=== PATIENT | female | born 2000 | race American Indian/Alaskan Native ===

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

== ENCOUNTER 2020-05-23 02:50 | Emergency (ER) | payer MEDICARE ==
[2020-05-23 03:04] VITALS: BP 114/91
[2020-05-23] MEDS ORDERED: FAMOTIDINE 20 MG TAB PO ONE (04:31)
[2020-05-23] MEDS ORDERED: ONDANSETRON 4 MG ODT TAB PO ONE (04:31)
--- NOTE | 2020-05-23 04:40 | Emergency Department Report ---
ED N/V/D HPI - General Chief complaint: Nausea/Vomiting/Diarrhea Stated complaint: HEADACHE Source: EMS Mode of arrival: Ambulatory Limitations: No Limitations - History of Present Illness Initial comments: Patient is a nulliparous 20-year-old -[place]ian female with a history of bipolar disorder, schizophrenia, hypertension and [id number]-ebzewccvl diabetes who presents to the ED with complaint of acute onset nausea and vomiting after drinking alcohol about 4 hours ago. Patient states that she has not been able to keep anything down since the onset of the symptoms. Patient states that she has had up to 4 episodes of nausea and vomiting. Patient denies diarrhea, abdominal pain, chest pain, shortness of breath, fever, chills, fever, chills, dysuria, urinary frequency and urgency, back pain, patient states that she has not been able to keep anything down chest pain or shortness of breath. MD complaint: nausea, vomiting -: Sudden, hour(s) (4) Description of Vomiting: food contents Associated Abdominal Pain: No Location: diffuse Radiation: none Pain Scale: 2 Quality: aching, dull Consistency: intermittent Improves with: none Worsens with: none Context: possible food poisoning, alcohol abuse Associated Symptoms: denies other symptoms, nausea/vomiting. denies: myalgias, chest pain, cough, diaphoresis, headaches, loss of appetite, malaise, rash, shortness of breath, syncope, weakness, other - Related Data Home Medications Medication Instructions Recorded Confirmed Last Taken Metoprolol [Lopressor] 100 mg PO BID 06/30/16 09/30/19 06/29/16 hydrOXYzine PAMOATE [Vistaril] 25 mg PO Q6HR PRN 09/30/19 09/30/19 Unknown hydrOXYzine PAMOATE [Vistaril] 75 mg PO HS 09/30/19 09/30/19 Unknown Previous Rx's Medication Instructions Recorded Last Taken Type Quetiapine Fumarate [SEROquel] 450 mg PO HS #30 10/03/19 Unknown Rx Dicyclomine [Bentyl] 20 mg PO Q6H PRN #24 tablet 05/23/20 Unknown Rx Famotidine [Pepcid] 20 mg PO BID #40 tablet 05/23/20 Unknown Rx Ondansetron [Zofran Odt] 4 mg PO Q6HR PRN #20 tab.rapdis 05/23/20 Unknown Rx Allergies Allergy/AdvReac Type Severity Reaction Status Date / Time ziprasidone HCl [From [facility]] Allergy Severe Swelling Verified 12/08/18 10:03 ziprasidone mesylate Allergy Severe Swelling Verified 12/08/18 10:03 [From [facility]] latex Allergy Itching Verified 12/08/18 10:03 ED Review of Systems ROS: Stated complaint: HEADACHE Other details as noted in HPI Constitutional: denies: chills, fever Eyes: denies: eye pain, eye discharge, vision change ENT: denies: ear pain, throat pain Respiratory: denies: cough, shortness of breath, wheezing Cardiovascular: denies: chest pain, palpitations Endocrine: no symptoms reported Gastrointestinal: nausea, vomiting. denies: abdominal pain, diarrhea Genitourinary: denies: urgency, dysuria, discharge Musculoskeletal: denies: back pain, joint swelling, arthralgia Skin: denies: rash, lesions Neurological: denies: headache, weakness, paresthesias Psychiatric: denies: anxiety, depression Hematological/Lymphatic: denies: easy bleeding, easy bruising ED Past Medical Hx - Past Medical History Hx Hypertension: Yes Hx Diabetes: Yes Hx Psychiatric Treatment: Yes (schizophrenia, PTSD) Additional medical history: OCD, Obesity - Social History Smoking Status: Current Every Day Smoker Substance Use Type: Alcohol, Marijuana - Medications Home Medications: Home Medications Medication Instructions Recorded Confirmed Last Taken Type Metoprolol [Lopressor] 100 mg PO BID 06/30/16 09/30/19 06/29/16 History hydrOXYzine PAMOATE [Vistaril] 25 mg PO Q6HR PRN 09/30/19 09/30/19 Unknown History hydrOXYzine PAMOATE [Vistaril] 75 mg PO HS 09/30/19 09/30/19 Unknown History Quetiapine Fumarate [SEROquel] 450 mg PO HS #30 10/03/19 Unknown Rx Dicyclomine [Bentyl] 20 mg PO Q6H PRN #24 tablet 05/23/20 Unknown Rx Famotidine [Pepcid] 20 mg PO BID #40 tablet 05/23/20 Unknown Rx Ondansetron [Zofran Odt] 4 mg PO Q6HR PRN #20 tab.rapdis 05/23/20 Unknown Rx ED Physical Exam - General Limitations: No Limitations General appearance: alert, in no apparent distress - Head Head exam: Present: atraumatic, normocephalic, normal inspection - Eye Eye exam: Present: normal appearance, PERRL, EOMI Pupils: Present: normal accommodation - ENT ENT exam: Present: normal exam, normal orophraynx, mucous membranes moist, TM's normal bilaterally, normal external ear exam - Neck Neck exam: Present: normal inspection, full ROM - Respiratory Respiratory exam: Present: normal lung sounds bilaterally. Absent: respiratory distress, wheezes, rales, chest wall tenderness, accessory muscle use, decreased breath sounds, prolonged expiratory - Cardiovascular Cardiovascular Exam: Present: normal rhythm, tachycardia, normal heart sounds. Absent: systolic murmur, diastolic murmur, rubs, gallop - GI/Abdominal GI/Abdominal exam: Present: soft, normal bowel sounds. Absent: tenderness, guarding, rebound, hyperactive bowel sounds, hypoactive bowel sounds, organomegaly - Extremities Exam Extremities exam: Present: normal inspection, full ROM, normal capillary refill - Back Exam Back exam: Present: normal inspection, full ROM. Absent: tenderness, CVA tenderness (R), CVA tenderness (L), muscle spasm, paraspinal tenderness - Neurological Exam Neurological exam: Present: alert, oriented X3, CN II-XII intact, normal gait, reflexes normal - Psychiatric Psychiatric exam: Present: normal affect, normal mood - Skin Skin exam: Present: warm, dry, intact, normal color. Absent: rash ED Course Vital Signs 05/23/20 02:58 Temperature 98.5 F Pulse Rate 103 H Respiratory 16 Rate Blood Pressure 114/91 O2 Sat by Pulse 97 Oximetry ED Medical Decision Making - Medical Decision Making This is a nulliparous 20-year-old -[place]ian female with a history of bipolar disorder, schizophrenia, hypertension and [id number] diabetes who presents to the ED with complaint of acute onset nausea and vomiting after drinking alcohol about 4 hours ago. Patient states that she has not been able to keep anything down since the onset of the symptoms. Patient states that she has had up to 4 episodes of nausea and vomiting. In the ED, patient is alert and oriented x3 and is not in distress. Patient was treated for nausea and vomiting in the ED and also given antacids. Urine hCG test was negative. Urinalysis was also unremarkable with no acute abnormalities. Patient passed oral fluid challenge in the ED. Patient was therefore discharged home on medications and advised to follow-up with her primary care physician in 5 to 7 days for reevaluation or return to the ED immediately if symptoms get worse. - Differential Diagnosis ; UTI; Viral gastroenteritis; Gastritis; GERD; dehydration Critical care attestation.: If time is entered above; I have spent that time in minutes in the direct care of this critically ill patient, excluding procedure time. ED Disposition Clinical Impression: Alcohol abuse, Nausea and vomiting in adult GERD (gastroesophageal reflux disease) Qualifiers: Esophagitis presence: without esophagitis Qualified Code(s): K21.9 - Gastro- esophageal reflux disease without esophagitis Disposition: TO HOME OR SELFCARE Is pt being admited?: No Does the pt Need Aspirin: No Condition: Stable Instructions: Gastroenteritis (ED), Acute Nausea and Vomiting (ED) Additional Instructions: Maintain a clear liquid diet for 12 to 24 hours. Take medication as needed for nausea and vomiting and follow-up with your primary care physician in 5 to 7 days for reevaluation. Return to the ED immediately if symptoms get worse. Prescriptions: Dicyclomine [Bentyl] 20 mg PO Q6H PRN #24 tablet PRN Reason: Abdominal pain Famotidine [Pepcid] 20 mg PO BID #40 tablet Ondansetron [Zofran Odt] 4 mg PO Q6HR PRN #20 tab.rapdis PRN Reason: Nausea Referrals: [facility] [Provider Group] - 3-5 Days Time of Disposition: 04:39 Print Language: ROMANIAN
[2020-05-23] MEDS ORDERED: ACETAMINOPHEN 325 MG TAB ONE (05:00)
[2020-05-23] MEDS ORDERED: ACETAMINOPHEN 325 MG TAB PO ONE (05:01)
[2020-05-23 05:05] LABS: Bilirubin,Urine NEG (Negative); Blood,Urine NEG (Negative); Color,Urine Yellow (Yellow); Hyaline Casts,Urine 2 /LPF; Mucus,Urine 3+ /HPF; Urobilinogen,Urine < 2.0 mg/dL (<2.0)
== END 2020-05-23 05:40 | disposition home or self-care (01) ==
LOC: ED 02:50
DX: K21.9 Gastro-esophageal reflux disease without esophagitis (principal); R11.2 Nausea with vomiting, unspecified; F10.10 Alcohol abuse, uncomplicated; I10 Essential (primary) hypertension; E11.9 Type 2 diabetes mellitus without complications; F20.9 Schizophrenia, unspecified; F17.200 Nicotine dependence, unspecified, uncomplicated; F12.10 Cannabis abuse, uncomplicated; Z79.899 Other long term (current) drug therapy; Z88.8 Allergy status to other drugs, medicaments and biological substances; Z91.040 Latex allergy status
CPT/HCPCS: 36415; 81001; 84703; 87086; Q0162

== ENCOUNTER 2020-12-14 19:37 | Emergency (ER) | payer MEDICARE, OTHER ==
[2020-12-14] MEDS ORDERED: TETRACAINE 0.5% OPHTH SOLN 4ML OU STA (21:14)
[2020-12-14] MEDS ORDERED: SODIUM CHLORIDE 0.9% 1000 ML 1,000 ML IV ONE (21:14)
--- NOTE | 2020-12-14 22:10 | Emergency Department Report ---
ED Eye Problem HPI - General Chief complaint: Eye Problems Stated complaint: BLEACH IN EYES Time Seen by Provider: 12/14/20 21:13 Source: patient Mode of arrival: Ambulatory Limitations: No Limitations - History of Present Illness Initial comments: 20-year-old -[place] female [facility] emergency department complaining of burning and pain some blurred vision to the right eye after being accidentally splashed bleach. States that the majority of the specimen into the right she had a small amount that she thinks might have went into her left but her primary area of concern is the right. She reports no headache, no dizziness MD chief complaint: eye pain, eye redness, eye injury - Related Data Home Medications Medication Instructions Recorded Confirmed Last Taken Metoprolol [Lopressor] 100 mg PO BID 06/30/16 09/30/19 06/29/16 hydrOXYzine PAMOATE [Vistaril] 25 mg PO Q6HR PRN 09/30/19 09/30/19 Unknown hydrOXYzine PAMOATE [Vistaril] 75 mg PO HS 09/30/19 09/30/19 Unknown Previous Rx's Medication Instructions Recorded Last Taken Type Quetiapine Fumarate [SEROquel] 450 mg PO HS #30 10/03/19 Unknown Rx Dicyclomine [Bentyl] 20 mg PO Q6H PRN #24 tablet 05/23/20 Unknown Rx Famotidine [Pepcid] 20 mg PO BID #40 tablet 05/23/20 Unknown Rx Ondansetron [Zofran Odt] 4 mg PO Q6HR PRN #20 tab.rapdis 05/23/20 Unknown Rx Gentamicin 0.3% Ophth Soln 1 drops OP Q6H #1 bottle 12/14/20 Unknown Rx Ketorolac Tromethamine [Acular 1 drop OD Q6HR PRN #1 bottle 12/14/20 Unknown Rx 0.5% Opth Soln] Naphazoline HCl/Pheniramine 1 drop OP QID #1 bottle 12/14/20 Unknown Rx [Naphcon-A Eye Drops] Allergies Allergy/AdvReac Type Severity Reaction Status Date / Time ziprasidone HCl [From [facility]] Allergy Severe Swelling Verified 12/08/18 10:03 ziprasidone mesylate Allergy Severe Swelling Verified 12/08/18 10:03 [From [facility]] latex Allergy Itching Verified 12/08/18 10:03 ED Review of Systems ROS: Stated complaint: BLEACH IN EYES Other details as noted in HPI Comment: All other systems reviewed and negative ED Past Medical Hx - Past Medical History Previous Medical History?: Yes Hx Hypertension: Yes Hx Diabetes: Yes Hx Psychiatric Treatment: Yes (schizophrenia, PTSD) Additional medical history: OCD, Obesity - Surgical History Past Surgical History?: No - Social History Smoking Status: Never Smoker Substance Use Type: None - Medications Home Medications: Home Medications Medication Instructions Recorded Confirmed Last Taken Type Metoprolol [Lopressor] 100 mg PO BID 06/30/16 09/30/19 06/29/16 History hydrOXYzine PAMOATE [Vistaril] 25 mg PO Q6HR PRN 09/30/19 09/30/19 Unknown History hydrOXYzine PAMOATE [Vistaril] 75 mg PO HS 09/30/19 09/30/19 Unknown History Quetiapine Fumarate [SEROquel] 450 mg PO HS #30 10/03/19 Unknown Rx Dicyclomine [Bentyl] 20 mg PO Q6H PRN #24 tablet 05/23/20 Unknown Rx Famotidine [Pepcid] 20 mg PO BID #40 tablet 05/23/20 Unknown Rx Ondansetron [Zofran Odt] 4 mg PO Q6HR PRN #20 tab.rapdis 05/23/20 Unknown Rx Gentamicin 0.3% Ophth Soln 1 drops OP Q6H #1 bottle 12/14/20 Unknown Rx Ketorolac Tromethamine [Acular 1 drop OD Q6HR PRN #1 bottle 12/14/20 Unknown Rx 0.5% Opth Soln] Naphazoline HCl/Pheniramine 1 drop OP QID #1 bottle 12/14/20 Unknown Rx [Naphcon-A Eye Drops] ED Physical Exam - General Limitations: No Limitations General appearance: alert, in no apparent distress - Head Head exam: Present: atraumatic, normocephalic - Eye Eye exam: Present: normal appearance, EOMI, conjunctival injection. Absent: nystagmus, periorbital swelling, periorbital tenderness - ENT ENT exam: Present: mucous membranes moist, other (Injected right conjunctiva. No fluorescein uptake noted. No nystagmus EMOI is intact) - Neck Neck exam: Present: normal inspection, full ROM - Respiratory Respiratory exam: Present: normal lung sounds bilaterally. Absent: respiratory distress - Cardiovascular Cardiovascular Exam: Present: regular rate, normal rhythm. Absent: systolic murmur, diastolic murmur, rubs, gallop - GI/Abdominal GI/Abdominal exam: Present: soft, normal bowel sounds - Extremities Exam Extremities exam: Present: normal inspection - Back Exam Back exam: Present: normal inspection - Neurological Exam Neurological exam: Present: alert, oriented X3 - Psychiatric Psychiatric exam: Present: normal affect, normal mood - Skin Skin exam: Present: warm, dry, intact, normal color. Absent: rash ED Course Vital Signs 12/14/20 19:42 Temperature 98.5 F Pulse Rate 93 H Respiratory 16 Rate Blood Pressure 124/87 O2 Sat by Pulse 100 Oximetry ED Medical Decision Making - Medical Decision Making 20-year-old F [place] female to [facility] complaining of right pain secondary to bleach. Injection was noted on examination no evidence of any cor belgica abrasion or corneal strong. Luis Antonio's lens was placed after tetracaine to anesthetize the eye and a saline drip was initiated for a total of 2 L and improvement in her system her's burning symptoms. Will discharge her with Naphcon-A and Acular and some antimicrobial 2 drops to take in the Critical care attestation.: If time is entered above; I have spent that time in minutes in the direct care of this critically ill patient, excluding procedure time. ED Disposition Clinical Impression: Corneal irritation of right eye Disposition: [id number]-01 TO HOME OR SELFCARE Is pt being admited?: No Does the pt Need Aspirin: No Condition: Stable Instructions: How to Use Eye Drops and Eye Ointments Prescriptions: Ketorolac Tromethamine [Acular 0.5% Opth Soln] 1 drop OD Q6HR PRN #1 bottle PRN Reason: eye pain Gentamicin 0.3% Ophth Soln 1 drops OP Q6H #1 bottle Naphazoline HCl/Pheniramine [Naphcon-A Eye Drops] 1 drop OP QID #1 bottle Referrals: PRIMARY CAREMD [Primary Care Provider] - 3-5 Days AARON HAYES MD [Staff Physician] - 3-5 Days
[2020-12-14] MEDS ORDERED: SODIUM CHLORIDE 0.45% 1000 ML 1,000 ML IV SCH (23:45)
[2020-12-15 03:03] VITALS: BP 112/62
== END 2020-12-15 03:04 | disposition home or self-care (01) ==
LOC: ED 19:37
DX: S05.01XA Injury of conjunctiva and corneal abrasion without foreign body, right eye, initial encounter (principal); I10 Essential (primary) hypertension; E11.9 Type 2 diabetes mellitus without complications; Z79.899 Other long term (current) drug therapy; Z91.040 Latex allergy status; Z88.8 Allergy status to other drugs, medicaments and biological substances; X58.XXXA Exposure to other specified factors, initial encounter; Y93.89 Activity, other specified; Y92.89 Other specified places as the place of occurrence of the external cause; Y99.8 Other external cause status
CPT/HCPCS: 96360; 96361; 99283; J7030

== ENCOUNTER 2021-08-25 14:43 | Emergency (ER) | payer MEDICARE, MEDICAID | END 2021-08-25 18:33 | disposition left against medical advice (07) | LOC: ED 14:43 | DX: R11.0 Nausea (principal); I10 Essential (primary) hypertension; Z53.21 Procedure and treatment not carried out due to patient leaving prior to being seen by health care provider ==

== ENCOUNTER 2021-10-11 22:05 | Emergency (ER) | payer MEDICARE ==
[2021-10-11 22:12] VITALS: BP 146/65
== END 2021-10-12 02:05 | disposition left against medical advice (07) ==
LOC: ED 22:05
DX: S05.32XA Ocular laceration without prolapse or loss of intraocular tissue, left eye, initial encounter (principal); Z53.21 Procedure and treatment not carried out due to patient leaving prior to being seen by health care provider; X58.XXXA Exposure to other specified factors, initial encounter; Y93.89 Activity, other specified; Y92.89 Other specified places as the place of occurrence of the external cause; Y99.8 Other external cause status

== ENCOUNTER 2021-12-05 01:06 | Emergency (ER) | payer MEDICARE ==
--- NOTE | 2021-12-05 02:00 | Emergency Department Report ---
HPI - HPI HPI: Room 7 The patient is a 21-year-old female presenting with a chief complaint of suicidal ideation. The patient came to the emergency department and told nursing in triage that she was suicidal. The patient states she took "a lot" of Seroquel but will not tell how much and what time. The patient told nursing staff in triage (Carrie) as she is planning to shoot herself. During my interview the patient appears disheveled and occasionally makes eye contact but does not answer questions. <MAGGI TIDWELL - Last Filed: 12/05/21 04:59> <MORGAN WOOD - Last Filed: 12/05/21 12:08> - General Chief Complaint: Psych Time Seen by Provider: 12/05/21 01:46 ED Past Medical Hx - Past Medical History Previous Medical History?: Yes Hx Hypertension: Yes Hx Diabetes: Yes Hx Psychiatric Treatment: Yes (schizophrenia, PTSD) Additional medical history: OCD, Obesity - Family History Family history: no significant - Social History Smoking Status: Unknown if ever smoked Substance Use Type: None <MAGGI TIDWELL - Last Filed: 12/05/21 04:59> <MORGAN WOOD - Last Filed: 12/05/21 12:08> - Medications Home Medications: Home Medications Medication Instructions Recorded Confirmed Last Taken Type Metoprolol [Lopressor] 100 mg PO BID 06/30/16 09/30/19 06/29/16 History hydrOXYzine PAMOATE [Vistaril] 25 mg PO Q6HR PRN 09/30/19 09/30/19 Unknown History hydrOXYzine PAMOATE [Vistaril] 75 mg PO HS 09/30/19 09/30/19 Unknown History Quetiapine Fumarate [SEROquel] 450 mg PO HS #30 10/03/19 Unknown Rx Dicyclomine [Bentyl] 20 mg PO Q6H PRN #24 tablet 05/23/20 Unknown Rx Famotidine [Pepcid] 20 mg PO BID #40 tablet 05/23/20 Unknown Rx Ondansetron [Zofran Odt] 4 mg PO Q6HR PRN #20 tab.rapdis 05/23/20 Unknown Rx Gentamicin 0.3% Ophth Soln 1 drops OP Q6H #1 bottle 12/14/20 Unknown Rx Ketorolac Tromethamine [Acular 1 drop OD Q6HR PRN #1 bottle 12/14/20 Unknown Rx 0.5% Opth Soln] Naphazoline HCl/Pheniramine 1 drop OP QID #1 bottle 12/14/20 Unknown Rx [Naphcon-A Eye Drops] ED Review of Systems ROS: Stated complaint: MENTAL HEALTH EVAL/TOOK PILLS Other details as noted in HPI Comment: Unobtainable due to pts medical conditions <MAGGI TIDWELL - Last Filed: 12/05/21 04:59> ROS: Stated complaint: MENTAL HEALTH EVAL/TOOK PILLS Other details as noted in HPI <NINAMORGAN - Last Filed: 12/05/21 12:08> Physical Exam - Physical Exam Vital Signs: Vital Signs 12/05/21 01:19 Temperature 98.6 F Pulse Rate 86 Respiratory 18 Rate Blood Pressure 115/72 [Left] O2 Sat by Pulse 97 Oximetry Physical Exam: GENERAL: The patient is well-developed well-nourished disheveled appearing female sleeping on stretcher. When she is awakened she begins rocking and making nervous movements throughout the bed. Patient does not answer questions. [] HEENT: Normocephalic. Atraumatic. Extraocular motions are intact. Patient has moist mucous membranes. NECK: Supple. Trachea mid CHEST/LUNGS: Clear to auscultation. There is no respiratory distress noted. HEART/CARDIOVASCULAR: Regular. There is no tachycardia. There is no gallop rub or murmur. ABDOMEN: Abdomen is soft, nontender. Patient has normal bowel sounds. There is no abdominal distention. SKIN: There is no rash. There is no edema. There is no diaphoresis. NEURO: The patient is asleep but easily awakens to verbal stimuli. The patient is not cooperative with history or neurologic exam. The patient has no focal neurologic deficits. MUSCULOSKELETAL: There is no evidence of acute injury. <MAGGI TIDWELL - Last Filed: 12/05/21 04:59> - Physical Exam Vital Signs: Vital Signs 12/05/21 12/05/21 01:19 07:17 Temperature 98.6 F Pulse Rate 86 73 Respiratory 18 16 Rate Blood Pressure 115/72 114/76 [Left] O2 Sat by Pulse 97 100 Oximetry <MORGAN WOOD - Last Filed: 12/05/21 12:08> ED Course Vital Signs 12/05/21 01:19 Temperature 98.6 F Pulse Rate 86 Respiratory 18 Rate Blood Pressure 115/72 [Left] O2 Sat by Pulse 97 Oximetry - Consultations Consultation #1: 12/05/21 04:28 Case discussed with poison control-Seroquel can lead to QTC prolongation so this should be evaluated with EKG. If the QTC is greater than 500 should optimize potassium to 4, magnesium to 2 and calcium to 9. Okay to give benzos for agitation as Seroquel may cause anticholinergic symptoms. Patient should be observed for 6 to 8 hours in the ED and returned to mental baseline before she can be cleared <MAGGI TIDWELL - Last Filed: 12/05/21 04:59> Vital Signs 12/05/21 12/05/21 01:19 07:17 Temperature 98.6 F Pulse Rate 86 73 Respiratory 18 16 Rate Blood Pressure 115/72 114/76 [Left] O2 Sat by Pulse 97 100 Oximetry - Reevaluation(s) Reevaluation #1: 12/05/21 08:52 The patient is seen and evaluated. She is in no acute distress. Laboratory studies are reviewed and appreciated. She appears to be . I performed bedside [id number] transabdominal ultrasound, confirmed presence of intraut erine , with spontaneous movement and heart rate. Abdomen soft and benign, without rebound, guarding or peritoneal signs, and the patient denies physical pain. Leukocytosis is likely a stress reaction, or secondary to , or both. Have ordered magnesium level, calcium within acceptable limits, potassium of 3.1 reviewed and appreciated, have ordered oral potassium supplementation. Have also ordered Daily vitamins. UA, UDS, COVID swab is pending. Patient reports this is her first lifetime , and she further reports she cannot recall her last menstrual period Reevaluation #2: 12/05/21 12:08 Magnesium level was essentially unremarkable. <MORGAN WOOD - Last Filed: 12/05/21 12:08> ED Medical Decision Making - Lab Data Result diagrams: 12/05/21 01:55 12/05/21 01:55 - EKG Data -: EKG Interpreted by Vt EKG shows normal: sinus rhythm, axis, intervals Rate: normal - EKG Data When compared to previous EKG there are: previous EKG unavailable Interpretation: other (QTC 417) - Differential Diagnosis Suicidal ideation, Seroquel overdose <MAGGI TIDWELL - Last Filed: 12/05/21 04:59> - Lab Data Result diagrams: 12/05/21 01:55 12/05/21 01:55 Vital Signs 12/05/21 12/05/21 01:19 07:17 Temperature 98.6 F Pulse Rate 86 73 Respiratory 18 16 Rate Blood Pressure 115/72 114/76 [Left] O2 Sat by Pulse 97 100 Oximetry Lab Results 12/05/21 12/05/21 12/05/21 Range/Units 01:55 01:55 01:55 WBC 14.6 H (4.5-11.0) K/mm3 RBC 4.35 (3.65-5.03) M/mm3 Hgb 12.4 (10.1-14.3) gm/dl Hct 36.0 (30.3-42.9) % MCV 83 (79-97) fl MCH 29 (28-32) pg MCHC 35 H (30-34) % RDW 14.1 (13.2-15.2) % Plt Count 367 (140-440) K/mm3 Lymph % (Auto) 16.5 (13.4-35.0) % [place] % (Auto) 7.7 H (0.0-7.3) % Eos % (Auto) 1.2 (0.0-4.3) % Baso % (Auto) 0.4 (0.0-1.8) % Lymph # (Auto) 2.4 (1.2-5.4) K/mm3 [place] # (Auto) 1.1 H (0.0-0.8) K/mm3 Eos # (Auto) 0.2 (0.0-0.4) K/mm3 Baso # (Auto) 0.1 (0.0-0.1) K/mm3 Seg Neutrophils % 74.2 H (40.0-70.0) % Seg Neutrophils # 10.8 H (1.8-7.7) K/mm3 Sodium 138 (137-145) mmol/L Potassium 3.1 L (3.6-5.0) mmol/L Chloride 101.5 (98-107) mmol/L Carbon Dioxide 24 (22-30) mmol/L Anion Gap 16 mmol/L BUN 8 (7-17) mg/dL Creatinine 0.6 (0.6-1.2) mg/dL Estimated GFR > 60 ml/min BUN/Creatinine Ratio 13 % Glucose 88 (65-100) mg/dL Calcium 9.6 (8.4-10.2) mg/dL Total Bilirubin 0.40 (0.1-1.2) mg/dL AST 28 (5-40) units/L ALT 42 (7-56) units/L Alkaline Phosphatase 72 (35-129) units/L Total Protein 6.8 (6.3-8.2) g/dL Albumin 3.8 L (3.9-5) g/dL Albumin/Globulin Ratio 1.3 % HCG, Qual (Negative) HCG, Quant (0-4) mIU/mL Salicylates < 0.3 L (2.8-20.0) mg/dL Acetaminophen (10.0-30.0) ug/mL Plasma/Serum Alcohol (0-0.07) % 12/05/21 12/05/21 12/05/21 Range/Units 01:55 01:55 01:55 WBC (4.5-11.0) K/mm3 RBC (3.65-5.03) M/mm3 Hgb (10.1-14.3) gm/dl Hct (30.3-42.9) % MCV (79-97) fl MCH (28-32) pg MCHC (30-34) % RDW (13.2-15.2) % Plt Count (140-440) K/mm3 Lymph % (Auto) (13.4-35.0) % [place] % (Auto) (0.0-7.3) % Eos % (Auto) (0.0-4.3) % Baso % (Auto) (0.0-1.8) % Lymph # (Auto) (1.2-5.4) K/mm3 [place] # (Auto) (0.0-0.8) K/mm3 Eos # (Auto) (0.0-0.4) K/mm3 Baso # (Auto) (0.0-0.1) K/mm3 Seg Neutrophils % (40.0-70.0) % Seg Neutrophils # (1.8-7.7) K/mm3 Sodium (137-145) mmol/L Potassium (3.6-5.0) mmol/L Chloride (98-107) mmol/L Carbon Dioxide (22-30) mmol/L Anion Gap mmol/L BUN (7-17) mg/dL Creatinine (0.6-1.2) mg/dL Estimated GFR ml/min BUN/Creatinine Ratio % Glucose (65-100) mg/dL Calcium (8.4-10.2) mg/dL Total Bilirubin (0.1-1.2) mg/dL AST (5-40) units/L ALT (7-56) units/L Alkaline Phosphatase (35-129) units/L Total Protein (6.3-8.2) g/dL Albumin (3.9-5) g/dL Albumin/Globulin Ratio % HCG, Qual Positive (Negative) HCG, Quant (0-4) mIU/mL Salicylates (2.8-20.0) mg/dL Acetaminophen 5.0 L (10.0-30.0) ug/mL Plasma/Serum Alcohol < 0.01 (0-0.07) % 12/05/21 Range/Units 04:20 WBC (4.5-11.0) K/mm3 RBC (3.65-5.03) M/mm3 Hgb (10.1-14.3) gm/dl Hct (30.3-42.9) % MCV (79-97) fl MCH (28-32) pg MCHC (30-34) % RDW (13.2-15.2) % Plt Count (140-440) K/mm3 Lymph % (Auto) (13.4-35.0) % [place] % (Auto) (0.0-7.3) % Eos % (Auto) (0.0-4.3) % Baso % (Auto) (0.0-1.8) % Lymph # (Auto) (1.2-5.4) K/mm3 [place] # (Auto) (0.0-0.8) K/mm3 Eos # (Auto) (0.0-0.4) K/mm3 Baso # (Auto) (0.0-0.1) K/mm3 Seg Neutrophils % (40.0-70.0) % Seg Neutrophils # (1.8-7.7) K/mm3 Sodium (137-145) mmol/L Potassium (3.6-5.0) mmol/L Chloride (98-107) mmol/L Carbon Dioxide (22-30) mmol/L Anion Gap mmol/L BUN (7-17) mg/dL Creatinine (0.6-1.2) mg/dL Estimated GFR ml/min BUN/Creatinine Ratio % Glucose (65-100) mg/dL Calcium (8.4-10.2) mg/dL Total Bilirubin (0.1-1.2) mg/dL AST (5-40) units/L ALT (7-56) units/L Alkaline Phosphatase (35-129) units/L Total Protein (6.3-8.2) g/dL Albumin (3.9-5) g/dL Albumin/Globulin Ratio % HCG, Qual (Negative) HCG, Quant 90366 H (0-4) mIU/mL Salicylates (2.8-20.0) mg/dL Acetaminophen (10.0-30.0) ug/mL Plasma/Serum Alcohol (0-0.07) % <MORGAN WOOD - Last Filed: 12/05/21 12:08> Critical care attestation.: If time is entered above; I have spent that time in minutes in the direct care of this critically ill patient, excluding procedure time. <MAGGI TIDWELL - Last Filed: 12/05/21 04:59> Critical care attestation.: If time is entered above; I have spent that time in minutes in the direct care of this critically ill patient, excluding procedure time. <MORGAN WOOD - Last Filed: 12/05/21 12:08> ED Disposition <MAGGI TIDWELL - Last Filed: 12/05/21 04:59> Is pt being admited?: No Does the pt Need Aspirin: No <MORGAN WOOD - Last Filed: 12/05/21 12:08> Clinical Impression: , Hypokalemia, Deliberate medication overdose, Suicidal ideation Dis[facility] Condition: Good Additional Instructions: OUTPATIENT MENTAL HEALTH RESOURCES [facility], [facility] Faisal Ruben SALE[facility]: [address] [place] [address] [place] [address] [phone] [facility]: [facility] [address] [place] [address] [place], [place] [address] [phone] [facility]: [facility]: [address] [facility] [address] [place] [address] [facility] [id number] [facility]: Abiodun Coley MD: [address] [facility] [address] [facility] [id number] [facility]: [address] [place] [address] [phone] [place] CRISIS AND ACCESS LINE: Referrals: PRIMARY CAREMD [Primary Care Provider] - 3-5 Days
[2021-12-05 02:09] LABS: Basophils # (Auto) 0.1 K/mm3 (0.0-0.1); Basophils % (Auto) 0.4 % (0.0-1.8); Eosinophils # (Auto) 0.2 K/mm3 (0.0-0.4); Eosinophils % (Auto) 1.2 % (0.0-4.3); Hemoglobin 12.4 gm/dl (10.1-14.3); Lymphocytes # (Auto) 2.4 K/mm3 (1.2-5.4); Lymphocytes % (Auto) 16.5 % (13.4-35.0); Mean Corpuscular HGB Conc 35 % (30-34); Mean Corpuscular Volume 83 fl (79-97); Monocytes # (Auto) 1.1 K/mm3 (0.0-0.8); Monocytes % (Auto) 7.7 % (0.0-7.3); Platelet Count 367 K/mm3 (140-440); Red Blood Count 4.35 M/mm3 (3.65-5.03); Red Cell Distribution Width 14.1 % (13.2-15.2)
[2021-12-05 02:33] LABS: Alanine Aminotransferase 42 units/L (7-56); Albumin 3.8 g/dL (3.9-5); Blood Urea Nitrogen 8 mg/dL (7-17); Calcium 9.6 mg/dL (8.4-10.2); Hemolysis Index 1
[2021-12-05 02:34] LABS: BUN/Creatinine Ratio 13
[2021-12-05] MEDS ORDERED: LORazepam 2 MG/ML VIAL IM PRN (04:27)
[2021-12-05] MEDS ORDERED: POTASSIUM CHLORIDE ER 20 MEQ TAB PO ONE (08:51)
[2021-12-05] MEDS ORDERED: PRENATAL VIT27-FE FUMARATE-FOLIC ACID VIT TAB PO SCH (10:00)
--- NOTE | 2021-12-05 10:55 | Consultation ---
History of Present Illness - Reason for Consult Consult date: 12/05/21 Reason for consult: suicidal - History of Present Psychiatric Illness ED Note:The patient is a 21-year-old female presenting with a chief complaint of suicidal ideation. The patient came to the emergency department and told nursing in triage that she was suicidal. The patient states she took "a lot" of Seroquel but will not tell how much and what time. The patient told nursing staff in triage (Carrie) as she is planning to shoot herself. During my inter view the patient appears disheveled and occasionally makes eye contact but does not answer questions. The patient is a 21 year old female with history of schizophrenia, PTSD, and OCD who presents to the Ed with suicidal ideation. The patient was seen this morning, she is calm with poor eye contact. The patient is refusing to answer questions. PAST PSYCHIATRIC HISTORY: PAST MEDICAL HISTORY: None reported or document Family Psychiatric History: None reported or documented SOCIAL HISTORY REVIEW OF SYSTEMS Constitutional: Negative for weight loss ENT: Negative for stridor Respiratory: Negative for cough or hemoptysis All other systems reviewed and are negative MENTAL STATUS EXAMINATION Diagnoses: Schizophrenia Treatment Plan Continue 1013 Haldol 2mg po daily PSYCHOTHERAPY: Supportive psychotherapy provided MEDICAL: Per primary team DELIRIUM PRECAUTIONS: Please re-orient patient frequently, keep lights on during the day, and minimize benzodiazepines and opiates as these medications could worsen patient's confusion. NEMATOLOGIST: Per medical team DISPOSITION: Recommend acute psychiatric inpatient treatment. Will follow. Thank you for the consult. Case staffed with Dr. Pal Medications and Allergies Medications and Allergies Allergies Allergy/AdvReac Type Severity Reaction Status Date / Time ziprasidone HCl [From Geodon] Allergy Severe Swelling Verified 12/05/21 01:19 ziprasidone mesylate Allergy Severe Swelling Verified 12/05/21 01:19 [From Geodon] latex Allergy Itching Verified 12/05/21 01:19 Home Medications Medication Instructions Recorded Confirmed Last Taken Type Metoprolol [Lopressor] 100 mg PO BID 06/30/16 09/30/19 06/29/16 History hydrOXYzine PAMOATE [Vistaril] 25 mg PO Q6HR PRN 09/30/19 09/30/19 Unknown History hydrOXYzine PAMOATE [Vistaril] 75 mg PO HS 09/30/19 09/30/19 Unknown History Quetiapine Fumarate [SEROquel] 450 mg PO HS #30 10/03/19 Unknown Rx Dicyclomine [Bentyl] 20 mg PO Q6H PRN #24 tablet 05/23/20 Unknown Rx Famotidine [Pepcid] 20 mg PO BID #40 tablet 05/23/20 Unknown Rx Ondansetron [Zofran Odt] 4 mg PO Q6HR PRN #20 tab.rapdis 05/23/20 Unknown Rx Gentamicin 0.3% Ophth Soln 1 drops OP Q6H #1 bottle 12/14/20 Unknown Rx Ketorolac Tromethamine [Acular 1 drop OD Q6HR PRN #1 bottle 12/14/20 Unknown Rx 0.5% Opth Soln] Naphazoline HCl/Pheniramine 1 drop OP QID #1 bottle 12/14/20 Unknown Rx [Naphcon-A Eye Drops] Active Meds: Active Medications Multivitamins/Iron/Calcium ( Xuw22-Da Fumarate-Folic Acid Vit Tab) 1 each PO QDAY ERENDIRA Potassium Chloride (Potassium Chloride Er 20 Meq Tab) 40 meq PO QDAY ERENDIRA Mental Status Exam - Vital signs Last Vital Signs Temp 98.6 F 12/05/21 01:19 Pulse 73 12/05/21 07:17 Resp 16 12/05/21 07:17 BP 114/76 12/05/21 07:17 Pulse Ox 100 12/05/21 07:17 Results Result Diagrams: 12/05/21 01:55 12/05/21 01:55 Abnormal lab results 12/05/21 12/05/21 12/05/21 Range/Units 01:55 01:55 01:55 WBC 14.6 H (4.5-11.0) K/mm3 MCHC 35 H (30-34) % [place] % (Auto) 7.7 H (0.0-7.3) % [place] # (Auto) 1.1 H (0.0-0.8) K/mm3 Seg Neutrophils % 74.2 H (40.0-70.0) % Seg Neutrophils # 10.8 H (1.8-7.7) K/mm3 Potassium 3.1 L (3.6-5.0) mmol/L Albumin 3.8 L (3.9-5) g/dL HCG, Quant (0-4) mIU/mL Salicylates < 0.3 L (2.8-20.0) mg/dL Acetaminophen (10.0-30.0) ug/mL 12/05/21 12/05/21 Range/Units 01:55 04:20 WBC (4.5-11.0) K/mm3 MCHC (30-34) % [place] % (Auto) (0.0-7.3) % [place] # (Auto) (0.0-0.8) K/mm3 Seg Neutrophils % (40.0-70.0) % Seg Neutrophils # (1.8-7.7) K/mm3 Potassium (3.6-5.0) mmol/L Albumin (3.9-5) g/dL HCG, Quant 71956 H (0-4) mIU/mL Salicylates (2.8-20.0) mg/dL Acetaminophen 5.0 L (10.0-30.0) ug/mL All other labs normal.
[2021-12-05] MEDS ORDERED: HALOPERIDOL 2 MG TAB PO SCH (12:00)
[2021-12-05] MEDS: POTASSIUM CHLORIDE ER 20 MEQ TAB PO SCH (18:14)
--- NOTE | 2021-12-06 09:59 | Electrocardiograph Report ---
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
--- NOTE | 2021-12-06 11:38 | Progress Note ---
Subjective - Reason for Consult Consult date: 12/06/21 Reason for consult: psychosis - Chief Complaint Chief complaint: The patient was seen today. She is calm, and cooperative. The patient is lucid and conversational. She says she is with her first child. The patient says her and the child's father lives her mother in [place], [place]. I asked the patient about the incident yesterday, she says "I didn't know where I was at the time so I tried to leave." I discussed with the patient about her plans moving forward. She says she really didn't have a lot of plans, but has a " appointment Thursday." She says "since she's been a young girl she's wanted to become an eye surgeon." She says "but I haven't started working toward it." The patient denies SI/HI. She says "I would never hurt myself or anybody else." She says she has a good support system with her child's father and her own mother. The patient denies hallucinations of any kind. She says "I feel okay, I'm just tired and ready to get back home." I discussed with the patient the need to keep her follow up appointments and take whatever med she's prescribed in the future. Spoke to the patient's mother. She says the patient has been in [facility]. Mom says the patient has substance abuse and will take any type of street drugs. Mom says the patient suffers from PTSD, Bipolar, ADHD, schizoaffective. She says the patient is very defiant. Mom did confirm that the patient has an appointment Thursday with a clinic. Mom also says she contacted [facility] to place the patient on the radar because she's concerned that the baby will be sick from drugs. Informed the mom that the patient no longer met criteria for inpatient treatment and she could pick the patient up today. Mom agrees and said she would pick the patient up when ready. REVIEW OF SYSTEMS Constitutional: Negative for weight loss ENT: Negative for stridor Respiratory: Negative for cough or hemoptysis All other systems reviewed and are negative MENTAL STATUS EXAMINATION General Appearance and Behavior: Age appropriate, good hygiene, wearing appropriate clothes, fair eye contact, calm, cooperative and polite Cooperation: Cooperative Psychomotor Behavior: Psychomotor normal Mood: tired, okay Affect and affective range: congruent with stated mood Thought Process: Goal directed Thought Content: Reality oriented Speech: normal tone and pace Suicidal Ideation: Denies Homicidal Ideation: Denies Hallucinations: Denies Delusions: None elicited Impulse Control: Limited Insight and Judgment: Limited insight and judgment Memory: Limited Attention: attentive Orientation: Alert, oriented Diagnoses: Bipolar Disorder Polysubstance Dependence Treatment Plane d/c 1013 d/c Haldol 2mg po daily Follow up with [facility] [employer] SERVICE PERSON with established appointment on Thursday PSYCHOTHERAPY: Supportive psychotherapy provided MEDICAL: Per primary team DELIRIUM PRECAUTIONS: Please re-orient patient frequently, keep lights on during the day, and minimize benzodiazepines and opiates as these medications could worsen patient's confusion. SLUNK SKIN CURER: Per medical team DISPOSITION: Do not recommend acute psychiatric inpatient treatment. The patient understands that if SI/HI or any feeling of endangerment she is to seek immediate assistance. Mom also verbalizes understanding and agreement of plan The cook mayonnaise to give the patient all necessary outpatient resources The patient to follow up with outpatient psych in 7 to 14 days upon discharge The patient to abstain from all illicit drug use. Will sign off. Thank you for the consult. Case staffed with Dr. Pal Mental Status Exam - Vital signs Last Vital Signs Temp 98.5 F 12/05/21 20:06 Pulse 80 12/05/21 20:06 Resp 16 12/05/21 20:06 BP 93/60 12/05/21 20:06 Pulse Ox 100 12/05/21 20:06
[2021-12-06] MEDS: POTASSIUM CHLORIDE ER 20 MEQ TAB PO SCH (12:18)
[2021-12-06 12:31] LABS: Bilirubin,Urine NEG (Negative); Blood,Urine NEG (Negative); Color,Urine Yellow (Yellow); Mucus,Urine 2+ /HPF; Protein,Urine <15 mg/dL mg/dL (Negative)
[2021-12-06 12:32] LABS: Amphetamine Screen,Urine Negative; Benzodiazepines Screen,Urine Negative; Cannabinoid Screen,Urine Negative; Methadone Screen,Urine Negative; Opiate Screen,Urine Negative
[2021-12-06 12:50] LABS: Cocaine Screen,Urine Positive
--- NOTE | 2021-12-06 13:00 | Emergency Department Report ---
Blank Doc - Documentation Documentation: 21 yo female, , hx of polysubstance abuse initially suicidal MH consult reviewed with mentation to discontinue 1013 and discharge patient home with outpt resources
[2021-12-06 13:10] VITALS: BP 100/76
== END 2021-12-06 16:39 | disposition home or self-care (01) ==
LOC: ED 01:06
DX: T43.591A Poisoning by other antipsychotics and neuroleptics, accidental (unintentional), initial encounter (principal); R45.851 Suicidal ideations; Y92.89 Other specified places as the place of occurrence of the external cause; I10 Essential (primary) hypertension; E11.9 Type 2 diabetes mellitus without complications; F20.89 Other schizophrenia
CPT/HCPCS: 36415; 80053; 80307; 80320; 81001; 83735; 84702; 84703; 85025; 93005; 99284; G0480

== ENCOUNTER 2021-12-07 11:50 | Outpatient (CLI) | payer MEDICARE ==
[2021-12-07 12:29] VITALS: BP 120/63
--- NOTE | 2021-12-07 13:30 | Ultrasound Report ---
ULTRASOUND OBSTETRIC INDICATION / CLINICAL INFORMATION: Dating ultrasound needed, no PNC. Clinical Gestational Age (GA) in weeks, days: Unknown TECHNIQUE: Transabdominal. COMPARISON: None available. FINDINGS: GESTATIONAL SAC: Well-defined oval shape and intrauterine in location. YOLK SAC: No significant abnormality. EMBRYO/FETUS: No significant abnormality. - Fulshear-Rump Length = 4.9 cm = 11 weeks, 5 days - Heart Rate, beats per minute (if present) = 157 ADNEXA: There is a 2.0 cm cyst in the right ovary. Left ovary is unremarkable. FREE FLUID: None. ADDITIONAL FINDINGS: None. IMPRESSION: 1. Single, living intrauterine with estimated sonographic age of 11 weeks, 5 days. Signer Name: Pamela Henry MD Signed: 12/07/2021 1:26 PM Workstation Name: [id number]
--- NOTE | 2021-12-07 13:35 | Event Note ---
Date: 12/07/21 Pt presents to L&D triage stating that she is having some abdominal cramping. Per patient, another hospital told her that she was 22 wks gestation. States that cramping started today. she denies vaginal bleeding. She also admits to using cocaine since she's been . Per patient and family member present with her during visit, she was sent home from the ER after an attempted overdose. Pt is still having some problems with cocaine use. Ultrasound ordered. No abnormalities seen. EDC 06/30/2022, which would put the patient at 10.5 wks. Pt still in need a assistance with substance abuse and mental health disorders. From the OB standpoint, she is stable. Sent to ER for for mental health assistance. When patient was informed that she had to go to the ER to be seen, she stated that she was not going back to the ER at this hospital. Pt and her mother state that they are going to the ER in [place] for evaluation. Pt was discharged home in good condition. She denied SI and wanting to harm herself or anyone else. Pt left labor and delivery triage ambulatory.
--- NOTE | 2021-12-07 13:52 | Event Note ---
I received a call from electrical designer drafter Lissett from [employer] requesting to send the patient to the ER for mental health evaluation for underlying mental health condition and polysubstance abuse. She expressed that patient was not suicidal. From our discussion it does not appear that patient meets criteria for 1013 given that she denies suicidal ideation, homicidal ideation or significant/d isorganized psychosis. I informed her that patient was recently cleared by mental health and provided resources for outpatient follow-up (yesterday). She presented to to [facility] with her mother. If patient does meet the criteria mentioned above requiring a 1013 then she may be sent to the ER for evaluation however, given that patient was recently here, cleared by mental health, provided outpatient resources, and as per PEST CONTROL SERVICE REPRESENTATIVE assessment has not complained of suicidal ideation then I informed her that she may follow-up as an outpatient as previously instructed.
== END 2021-12-07 13:41 | disposition home or self-care (01) ==
LOC: TRG 11:50 → APU 11:50 → TRG 13:41
PROVIDERS: ATTEND Obstetrics & Gynecology
DX: Z34.91 Encounter for supervision of normal pregnancy, unspecified, first trimester (principal); Z3A.10 10 weeks gestation of pregnancy
CPT/HCPCS: 59025; 76801

== ENCOUNTER 2022-01-19 00:21 | Outpatient (CLI) | payer MEDICARE ==
[2022-01-19 00:50] VITALS: BP 138/66
[2022-01-19 02:00] LABS: Bilirubin,Urine NEG (Negative); Blood,Urine NEG (Negative); Color,Urine Straw (Yellow); Protein,Urine <15 mg/dL mg/dL (Negative); Urobilinogen,Urine < 2.0 mg/dL (<2.0)
[2022-01-19 02:01] LABS: Mucus,Urine FEW /HPF
== END 2022-01-19 02:30 | disposition home or self-care (01) ==
LOC: TRG 00:21 → APU 00:22 → TRG 02:30
PROVIDERS: ATTEND Obstetrics & Gynecology
DX: O26.892 Other specified pregnancy related conditions, second trimester (principal); R10.9 Unspecified abdominal pain; Z3A.20 20 weeks gestation of pregnancy
CPT/HCPCS: 81001

== ENCOUNTER 2022-02-10 21:13 | Outpatient (CLI) | payer MEDICARE ==
[2022-02-10 21:37] VITALS: BP 118/89
--- NOTE | 2022-02-10 23:26 | Ultrasound Report ---
US OB follow up, US OB transvaginal INDICATION / CLINICAL INFORMATION: EFW,MATILDA COMPARISON: None available. TECHNIQUE: Using a transcutaneous probe, multiple grayscale, color Doppler, and spectral Doppler imag es of the uterus and fetus were captured and stored. Additional imaging of the cervix was performed u sing endovaginal probe. FINDINGS: Single fetus is present in variable position, heart rate 128 bpm. The amniotic fluid index is within normal limits measuring 20.4 cm. Grade 1 anterior placenta is demonstrated, no ultrasound abnormality at the placental interface or pl acenta demonstrated. The maternal cervix measures 2.4-2.8 cm. There may be minimal funneling of the internal os. Biparietal Diameter = 5.06 cm = 21, 2 weeks, days Head Circumference = 18.84 cm = 21, 1 weeks, days Abdominal Circumference = 17.12 cm = 22, 1 weeks, days Femur Length = 3.85 cm = 22, 2 weeks, days Average Ultrasound Age (AUA) = 21, 5 weeks, days. EDC 06/18/2022. Clinical estimate gestational age based on LMP is 23 weeks 1 day. Estimated weight = 472 g. Growth percentile 7%.. IMPRESSION: 1. Shortened cervix with minimal funneling of the internal os. 2. Single living intrauterine fetus as detailed. Signer Name: Hadley Cruz II, MD Signed: 02/10/2022 11:22 PM Workstation Name: [id number]
== END 2022-02-10 23:50 ==
LOC: EEVIPCON 21:13 → TRG 21:13 → APU 21:18 → TRG 23:50
PROVIDERS: ATTEND Obstetrics & Gynecology Gynecology
DX: O26.892 Other specified pregnancy related conditions, second trimester (principal); R10.9 Unspecified abdominal pain; Z3A.26 26 weeks gestation of pregnancy
CPT/HCPCS: 36415; 76816; 76817; 82731

== ENCOUNTER 2022-02-19 19:03 | Outpatient (CLI) | payer OTHER, MEDICARE ==
[2022-02-19 19:50] VITALS: BP 114/82
[2022-02-19] MEDS ORDERED: LACTATED RINGERS 500 ML IV ONE (20:15)
--- NOTE | 2022-02-19 21:43 | Ultrasound Report ---
OBSTETRIC ULTRASOUND INDICATION: Vaginal bleeding COMPARISON: Ultrasound 02/10/2022 TECHNIQUE: Transabdominal imaging was performed. FINDINGS: Single viable intrauterine is identified. lie: Cephalic. Heart rate: 145 bpm. measurements are as follows: Biparietal diameter 5.5 cm, 22 weeks 5 days Head circumference 20.6 cm, 22 weeks 5 days Abdominal circumference 16.7 cm, 21 weeks 5 days Femur length 4.3 cm, 24 weeks 0 days Estimated weight is 531 g. Amniotic fluid index is 15.3 cm, within normal limits. No placental abnormalities are seen. CONCLUSION: Single viable intrauterine currently in vertex position. Amniotic fluid index is within nor mal limits. Signer Name: Cyril Kohler MD Signed: 02/19/2022 9:39 PM Workstation Name: [id number]
== END 2022-02-19 21:40 | disposition home or self-care (01) ==
LOC: TRG 19:03 → APU 19:05 → TRG 21:40
PROVIDERS: ATTEND Obstetrics & Gynecology
DX: O46.92 Antepartum hemorrhage, unspecified, second trimester (principal); Z3A.24 24 weeks gestation of pregnancy
CPT/HCPCS: 76816

== ENCOUNTER 2022-02-22 00:12 | Outpatient (CLI) | payer OTHER, MEDICARE ==
[2022-02-22 00:41] VITALS: BP 134/70
[2022-02-22 01:09] LABS: Bilirubin,Urine Negative (Negative); Color,Urine Yellow (Yellow)
[2022-02-22 01:10] LABS: Blood,Urine Negative (Negative); Urobilinogen,Urine 0.2 mg/dL (<2.0)
[2022-02-22 01:13] LABS: Mucus,Urine 3+ /HPF
[2022-02-22] MEDS ORDERED: ACETAMINOPHEN 500 MG TAB PO ONE (02:04)
== END 2022-02-22 02:25 | disposition home or self-care (01) ==
LOC: TRG 00:12 → APU 00:14 → TRG 02:25
PROVIDERS: ATTEND Obstetrics & Gynecology
DX: O26.892 Other specified pregnancy related conditions, second trimester (principal); R10.9 Unspecified abdominal pain; Z3A.24 24 weeks gestation of pregnancy
CPT/HCPCS: 36415; 81001; 84112; 86850; 86900; 86901

== ENCOUNTER 2022-03-02 13:20 | Outpatient (CLI) | payer MEDICARE ==
[2022-03-02 14:49] VITALS: BP 112/72
[2022-03-02] MEDS ORDERED: LACTATED RINGERS 1,000 ML IV ONE (15:37)
[2022-03-02] MEDS ORDERED: LACTATED RINGERS 500 ML IV ONE (15:40)
[2022-03-02 16:09] LABS: Amphetamine Screen,Urine PRESUMPTIVE NEGATIVE; Benzodiazepines Screen,Urine PRESUMPTIVE NEGATIVE; Cannabinoid Screen,Urine PRESUMPTIVE NEGATIVE; Cocaine Screen,Urine PRESUMPTIVE NEGATIVE; Methadone Screen,Urine PRESUMPTIVE NEGATIVE; Opiate Screen,Urine PRESUMPTIVE NEGATIVE
[2022-03-02 17:42] LABS: Bacteria,Urine 1+ /HPF (Negative)
[2022-03-02 17:59] LABS: Bilirubin,Urine 1+ (Negative); Blood,Urine Negative (Negative); Color,Urine Yellow (Yellow)
[2022-03-02 18:00] LABS: Ictotest,Urine Negative (Negative); WBC,Urine < 1.0 /HPF (0.0-6.0)
== END 2022-03-02 16:00 | disposition left against medical advice (07) ==
LOC: APU 13:20 → TRG 13:20
PROVIDERS: ATTEND Obstetrics & Gynecology
DX: O26.892 Other specified pregnancy related conditions, second trimester (principal); R10.9 Unspecified abdominal pain; L98.429 Non-pressure chronic ulcer of back with unspecified severity; R11.10 Vomiting, unspecified; Z3A.26 26 weeks gestation of pregnancy
CPT/HCPCS: 59025; 80307; 81001

== ENCOUNTER 2022-03-20 03:52 | Emergency (ER) | payer MEDICARE ==
[2022-03-20 04:18] VITALS: BP 125/81
[2022-03-20] MEDS ORDERED: SODIUM CHLORIDE 0.9% 1000 ML 1,000 ML IV ONE (04:48)
[2022-03-20 05:40] LABS: Basophils % (Auto) 0.1 % (0.0-1.8); Eosinophils # (Auto) 0.1 K/mm3 (0.0-0.4); Hematocrit 33.8 % (30.3-42.9); Hemoglobin 11.1 gm/dl (10.1-14.3); Lymphocytes # (Auto) 1.8 K/mm3 (1.2-5.4); Lymphocytes % (Auto) 13.4 % (13.4-35.0); Mean Corpuscular HGB Conc 33 % (30-34); Mean Corpuscular Volume 88 fl (79-97); Monocytes # (Auto) 1.1 K/mm3 (0.0-0.8); Platelet Count 347 K/mm3 (140-440); Red Blood Count 3.86 M/mm3 (3.65-5.03); Red Cell Distribution Width 14.5 % (13.2-15.2)
[2022-03-20 05:58] LABS: Blood Urea Nitrogen 7 mg/dL (7-17); Calcium 9.4 mg/dL (8.4-10.2); Hemolysis Index 2
[2022-03-20 06:12] LABS: BUN/Creatinine Ratio 18
--- NOTE | 2022-03-20 08:23 | Emergency Department Report ---
- General Chief complaint: Skin/Abscess/Foreign Body Stated complaint: POSS INFECTIN IN INCISION Time Seen by Provider: 03/20/22 08:16 Source: patient Mode of arrival: Ambulatory Limitations: No Limitations - History of Present Illness Initial comments: 21 -year-old with PTSD and Schizophrenia at 28 weeks gestation who present with wound check. Pt reports anterior hernia repair 3 days ago and wanted the wound check because she was told by her mother to be evaluated. She also mentioned that she has been to Urgent Care but they will not take her Medicare card. She however denies any abdominal pain, with no discharges from the surgical magdaleno. No redness or open surgical incision reported. No other modifying or associated factors reported. - Related Data Home Medications Medication Instructions Recorded Confirmed Last Taken Metoprolol [Lopressor] 100 mg PO BID 06/30/16 09/30/19 06/29/16 hydrOXYzine PAMOATE [Vistaril] 25 mg PO Q6HR PRN 09/30/19 09/30/19 Unknown hydrOXYzine PAMOATE [Vistaril] 75 mg PO HS 09/30/19 09/30/19 Unknown Previous Rx's Medication Instructions Recorded Last Taken Type Quetiapine Fumarate [SEROquel] 450 mg PO HS #30 10/03/19 Unknown Rx Dicyclomine [Bentyl] 20 mg PO Q6H PRN #24 tablet 05/23/20 Unknown Rx Famotidine [Pepcid] 20 mg PO BID #40 tablet 05/23/20 Unknown Rx Ondansetron [Zofran Odt] 4 mg PO Q6HR PRN #20 tab.rapdis 05/23/20 Unknown Rx Gentamicin 0.3% Ophth Soln 1 drops OP Q6H #1 bottle 12/14/20 Unknown Rx Ketorolac Tromethamine [Acular 1 drop OD Q6HR PRN #1 bottle 12/14/20 Unknown Rx 0.5% Opth Soln] Naphazoline HCl/Pheniramine 1 drop OP QID #1 bottle 12/14/20 Unknown Rx [Naphcon-A Eye Drops] Vit-Fe Fumar-FA [ 1 each PO QDAY #30 tablet 12/06/21 Unknown Rx Vitamin] Allergies Allergy/AdvReac Type Severity Reaction Status Date / Time ziprasidone HCl [From Luis] Allergy Severe Swelling Verified 02/22/22 00:25 ziprasidone mesylate Allergy Severe Swelling Verified 02/22/22 00:25 [From Geodon] latex Allergy Itching Verified 02/22/22 00:25 Abscess Boil HPI - HPI Chief Complaint: Skin/Abscess/Foreign Body Stated Complaint: POSS INFECTIN IN INCISION Time Seen by Provider: 03/20/22 08:16 Duration: Today Location: Abdomen Severity: None History: Yes Pain (very mild from the surgical area ), No Fever, No Purulent Drainage, No Numbness, No Foreign Body, No Previous History, No Insect Bite Home Medications: Home Medications Medication Instructions Recorded Confirmed Last Taken Metoprolol [Lopressor] 100 mg PO BID 06/30/16 09/30/19 06/29/16 hydrOXYzine PAMOATE [Vistaril] 25 mg PO Q6HR PRN 09/30/19 09/30/19 Unknown hydrOXYzine PAMOATE [Vistaril] 75 mg PO HS 09/30/19 09/30/19 Unknown Previous Rx's Medication Instructions Recorded Last Taken Type Quetiapine Fumarate [SEROquel] 450 mg PO HS #30 10/03/19 Unknown Rx Dicyclomine [Bentyl] 20 mg PO Q6H PRN #24 tablet 05/23/20 Unknown Rx Famotidine [Pepcid] 20 mg PO BID #40 tablet 05/23/20 Unknown Rx Ondansetron [Zofran Odt] 4 mg PO Q6HR PRN #20 tab.rapdis 05/23/20 Unknown Rx Gentamicin 0.3% Ophth Soln 1 drops OP Q6H #1 bottle 12/14/20 Unknown Rx Ketorolac Tromethamine [Acular 1 drop OD Q6HR PRN #1 bottle 12/14/20 Unknown Rx 0.5% Opth Soln] Naphazoline HCl/Pheniramine 1 drop OP QID #1 bottle 12/14/20 Unknown Rx [Naphcon-A Eye Drops] Vit-Fe Fumar-FA [ 1 each PO QDAY #30 tablet 12/06/21 Unknown Rx Vitamin] Allergies/Adverse Reactions: Allergies Allergy/AdvReac Type Severity Reaction Status Date / Time ziprasidone HCl [From Geodon] Allergy Severe Swelling Verified 02/22/22 00:25 ziprasidone mesylate Allergy Severe Swelling Verified 02/22/22 00:25 [From Geodon] latex Allergy Itching Verified 02/22/22 00:25 ED Review of Systems ROS: Stated complaint: POSS INFECTIN IN INCISION Other details as noted in HPI Comment: All other systems reviewed and negative Gastrointestinal: other (surgical wound check ) Skin: other (surgical wound check ) ED Past Medical Hx - Past Medical History Hx Hypertension: Yes Hx Diabetes: No Hx Deep Vein Thrombosis: No Hx Renal Disease: No Hx Sickle Cell Disease: No Hx Seizures: No Hx Psychiatric Treatment: Yes (schizophrenia, PTSD) Hx Asthma: Yes (ALBUTEROL (USED LAST PM)) Hx HIV: No Additional medical history: OCD, Obesity - Social History Smoking Status: Never Smoker - Medications Home Medications: Home Medications Medication Instructions Recorded Confirmed Last Taken Type Metoprolol [Lopressor] 100 mg PO BID 06/30/16 09/30/19 06/29/16 History hydrOXYzine PAMOATE [Vistaril] 25 mg PO Q6HR PRN 09/30/19 09/30/19 Unknown History hydrOXYzine PAMOATE [Vistaril] 75 mg PO HS 09/30/19 09/30/19 Unknown History Quetiapine Fumarate [SEROquel] 450 mg PO HS #30 10/03/19 Unknown Rx Dicyclomine [Bentyl] 20 mg PO Q6H PRN #24 tablet 05/23/20 Unknown Rx Famotidine [Pepcid] 20 mg PO BID #40 tablet 05/23/20 Unknown Rx Ondansetron [Zofran Odt] 4 mg PO Q6HR PRN #20 tab.rapdis 05/23/20 Unknown Rx Gentamicin 0.3% Ophth Soln 1 drops OP Q6H #1 bottle 12/14/20 Unknown Rx Ketorolac Tromethamine [Acular 1 drop OD Q6HR PRN #1 bottle 12/14/20 Unknown Rx 0.5% Opth Soln] Naphazoline HCl/Pheniramine 1 drop OP QID #1 bottle 12/14/20 Unknown Rx [Naphcon-A Eye Drops] Vit-Fe Fumar-FA [ 1 each PO QDAY #30 tablet 12/06/21 Unknown Rx Vitamin] ED Physical Exam - General Limitations: No Limitations General appearance: alert, in no apparent distress - Neck Neck exam: Absent: tenderness - Respiratory Respiratory exam: Present: normal lung sounds bilaterally. Absent: respiratory distress, accessory muscle use - Cardiovascular Cardiovascular Exam: Present: regular rate, normal rhythm, normal heart sounds - GI/Abdominal GI/Abdominal exam: Present: soft, normal bowel sounds, other (noted with anterior abdominal surgical inscion magdaleno without any erythema or discharge or pain ). Absent: distended - Extremities Exam Extremities exam: Present: normal inspection, normal capillary refill. Absent: pedal edema - Back Exam Back exam: Absent: tenderness - Neurological Exam Neurological exam: Present: alert, oriented X3 - Psychiatric Psychiatric exam: Present: normal affect, normal mood - Skin Skin exam: Present: warm, normal color, other (noted with anterior abdominal surgical inscion magdaleno without any erythema or discharge or pain ) ED Course Vital Signs 03/20/22 03/20/22 04:15 07:17 Temperature 97.7 F Pulse Rate 114 H Respiratory 16 Rate Blood Pressure 125/81 O2 Sat by Pulse 99 100 Oximetry - Reevaluation(s) Reevaluation #1: 03/20/22 13:43 I was informed that patient decided to signed out AMA and that she was going to follow up with her PCP and Polysomnography Technician and her surgeon for further evaluation. ED Medical Decision Making - Lab Data Result diagrams: 03/20/22 05:25 03/20/22 05:25 - Medical Decision Making here with post surgical wound check -- noted with anterior abdominal surgical inscion magdaleno without any erythema or discharge or pain Critical care attestation.: If time is entered above; I have spent that time in minutes in the direct care of this critically ill patient, excluding procedure time. ED Disposition Clinical Impression: Encounter for post surgical wound check Disposition: 07 LEFT AGAINST MEDICAL ADVICE Is pt being admited?: No Does the pt Need Aspirin: No Condition: Stable Instructions: Wound Care, Adult, Sutured Wound Care, [id number] Additional Instructions: Even though you signed out AGAINST MEDICAL ADVICE you can always come back to the emergency room you will be reevaluated and treated appropriately Call and follow-up with your DAY CARE HOME PROVIDER and your surgeon for continued care and progress Time of Disposition: 08:30
== END 2022-03-20 09:00 | disposition left against medical advice (07) ==
LOC: ED 03:52
DX: O86.01 Infection of obstetric surgical wound, superficial incisional site (principal); Z3A.28 28 weeks gestation of pregnancy; I10 Essential (primary) hypertension; J45.909 Unspecified asthma, uncomplicated; Z91.040 Latex allergy status; Z91.09 Other allergy status, other than to drugs and biological substances; Z79.899 Other long term (current) drug therapy
CPT/HCPCS: 36415; 80048; 82140; 85025; 87040; 99283; J7030

== ENCOUNTER 2022-03-22 16:04 | Outpatient (CLI) | payer MEDICARE ==
[2022-03-22 16:23] VITALS: BP 129/62
[2022-03-22] MEDS ORDERED: LACTATED RINGERS 500 ML IV ONE (17:50)
== END 2022-03-22 17:27 | disposition home or self-care (01) ==
LOC: TRG 16:04 → APU 16:06 → TRG 16:16
PROVIDERS: ATTEND Obstetrics & Gynecology Gynecology
DX: O26.853 Spotting complicating pregnancy, third trimester (principal); Z3A.35 35 weeks gestation of pregnancy
CPT/HCPCS: 59025

== ENCOUNTER 2022-04-03 00:02 | Outpatient (CLI) | payer MEDICARE ==
[2022-04-03 00:28] VITALS: BP 121/81
[2022-04-03] MEDS ORDERED: ONDANSETRON 4 MG/2 ML INJ IV ONE (01:16)
[2022-04-03] MEDS ORDERED: D5W/0.9% NACL 1,000 ML IV SCH (02:00)
== END 2022-04-03 02:41 | disposition home or self-care (01) ==
LOC: TRG 00:02 → APU 00:03 → TRG 02:41
PROVIDERS: ATTEND Obstetrics & Gynecology Gynecology
DX: O46.93 Antepartum hemorrhage, unspecified, third trimester (principal); O21.2 Late vomiting of pregnancy; Z3A.32 32 weeks gestation of pregnancy
CPT/HCPCS: 59025; 96361; 96374; J2405; J7042; 96360; J3490